=== PATIENT | male | born 1955 | race Caucasian/White ===

== ENCOUNTER 2017-02-08 18:04 | Inpatient (IN) | payer MEDICAID ==
[~2017-02-08] VITALS: Ht 152.4 cm; Wt 48.1 kg
[~2017-02-08 18:04] MED LIST: AMLO10TA80 PO; ATOR20TA65 PO; VENTOLIN INH
[2017-02-08] MEDS ORDERED: ASPIRIN 81MG TABLET PO STA (19:19)
[2017-02-08] MEDS ORDERED: IPRATROPIUM BROMIDE (0.02%) 0.5MG/2.5ML NEB HHN STA (19:19)
[2017-02-08] MEDS ORDERED: METHYLPREDNISOLONE SOD SUCC 125 MG/2 ML VIAL IV STA (19:19)
[2017-02-08] MEDS ORDERED: ALBUTEROL (0.083%) 2.5MG/3ML NEB HHN STA (19:19)
[2017-02-08] MEDS ORDERED: LEVOFLOXACIN 750MG PREMIX 150 ML IV ONE (19:30)
[2017-02-08] MEDS ORDERED: SODIUM CHLORIDE 0.9% 1000ML BAG (SEPSIS BOLUS) IV ONE (19:30)
[2017-02-08] MEDS ORDERED: NAPROXEN 500MG TABLET PO ONE (19:45)
[2017-02-08 20:00] LABS: BASOPHILS % 0.4 % (0.0-2.0); EOSINOPHILS % 2.7 % (0.0-5.0); HEMATOCRIT. 42.2 % (42.0-52.0); HEMOGLOBIN. 13.9 g/dL (14.0-18.0); LYMPHOCYTES % 24.7 % (20.0-50.0); MEAN CORPUSCULAR HEMOGLOBIN 28.1 pg (28.0-32.0); MEAN PLATELET VOLUME 8.5 fl (7.4-10.4); MONOCYTES % 6.6 % (2.0-8.0); NEUTROPHILS % 65.6 % (40.0-76.0); PLATELET 297 x1000/uL (130-400); RED BLOOD CELL COUNT 4.96 mill/uL (4.7-6.1); RED CELL DISTRIBUTION WIDTH 14.9 % (11.6-14.6)
[2017-02-08 20:05] LABS: CHLORIDE 99 mEq/L (98-107)
[2017-02-08 20:09] LABS: PARTIAL THROMBOPLASTIN TIME 27.1 sec (23.4-31.0); PROTHROMBIN TIME 10.7 sec (9.4-11.6)
[2017-02-08 20:15] LABS: CARBON DIOXIDE 28 mEq/L (21-32)
[2017-02-08 20:19] LABS: TROPONIN I < 0.02 ng/mL (0.00-0.04)
[2017-02-08 21:36] LABS: CLARITY URINE CLEAR (CLEAR); COLOR URINE YELLOW (YELLOW); GLUCOSE URINE NEGATIVE (NEGATIVE); KETONES URINE NEGATIVE (NEGATIVE); LEUKOCYTE ESTERASE URINE NEGATIVE (NEGATIVE); NITRITE URINE NEGATIVE (NEGATIVE); OCCULT BLOOD URINE NEGATIVE (NEGATIVE); PH URINE 6.5 (4.5-8.0); PROTEIN URINE NEGATIVE (NEGATIVE); UROBILINOGEN URINE 0.2 E.U./dL (0.2-1.0)
[2017-02-08] MEDS ORDERED: CLONIDINE 0.1MG TABLET PO PRN (22:45)
[2017-02-08] MEDS ORDERED: MAGNESIUM/ALUMINUM HYDROXIDE/SIMETHICONE 30ML UDC PO PRN (22:45)
[2017-02-08] MEDS ORDERED: DOCUSATE SODIUM 100MG CAPSULE PO PRN (22:45)
[2017-02-08] MEDS ORDERED: ONDANSETRON HCL 4MG/2ML VIAL IV PRN (22:45)
[2017-02-08] MEDS ORDERED: IPRATROPIUM/ALBUTEROL 0.5-3(2.5)MG/3ML NEB INH PRN (22:45)
[2017-02-08] MEDS ORDERED: ACETAMINOPHEN 325MG TABLET PO PRN (22:45)
[2017-02-09] VITALS (7 sets, daily range): BP systolic 115–134; BP diastolic 55–64
[2017-02-09] MEDS ORDERED: DEXTROSE 50% WATER 50ML SYRINGE IV PRN (02:15)
[2017-02-09 05:21] LABS: HEMOGLOBIN. 12.4 g/dL (14.0-18.0); MEAN CORPUSCULAR HEMOGLOBIN 28.3 pg (28.0-32.0); MEAN CORPUSCULAR VOLUME 84.3 fL (80.0-94.0); MEAN PLATELET VOLUME 8.6 fl (7.4-10.4); PLATELET 257 x1000/uL (130-400); RED BLOOD CELL COUNT 4.39 mill/uL (4.7-6.1); RED CELL DISTRIBUTION WIDTH 15.3 % (11.6-14.6)
[2017-02-09] MEDS: METHYLPREDNISOLONE SOD SUCC 40 MG/ML VIAL IV SCH ×3 (05:49→22:24)
[2017-02-09 06:28] LABS: PLATELET ESTIMATE NORMAL
[2017-02-09 06:42] LABS: CARBON DIOXIDE 24 mEq/L (21-32); CHLORIDE 105 mEq/L (98-107)
[2017-02-09 06:52] LABS: CREATINE KINASE 75 IU/L (39-308); CREATINE KINASE MB FRACTION 1.9 ng/mL (0.5-3.6); HDL CHOLESTEROL 48 mg/dL (40-59); LDL CHOLESTEROL 81 mg/dL (5-100); TROPONIN I < 0.02 ng/mL (0.00-0.04)
[2017-02-09] MEDS: BLOOD SUGAR DIAGNOSTIC STRIP TEST SCH ×4 (07:00→21:00)
[2017-02-09] MEDS: INSULIN LISPRO 100 UNITS/ML SUBCUT SCH ×4 (07:00→22:11)
[2017-02-09 09:15] LABS: *AMPHETAMINES SCREEN URINE NEGATIVE (NEGATIVE); *BARBITURATES SCREEN URINE NEGATIVE (NEGATIVE); *BENZODIAZEPINES SCREEN URINE NEGATIVE (NEGATIVE); *COCAINE SCREEN URINE NEGATIVE (NEGATIVE); CANNABINOID URINE SCREEN NEGATIVE (NEGATIVE); METHADONE URINE SCREEN NEGATIVE (NEGATIVE); OPIATES URINE SCREEN PRESUMTIVE POSITIVE (NEGATIVE); PHENCYCLIDINE URINE SCREEN NEGATIVE (NEGATIVE)
[2017-02-09] MEDS: AZITHROMYCIN 500 MG TABLET PO SCH (10:04)
[2017-02-09] MEDS: ENOXAPARIN 40MG/0.4ML SYR SUBCUT SCH (10:05)
[2017-02-09] MEDS ORDERED: IPRATROPIUM/ALBUTEROL 0.5-3(2.5)MG/3ML NEB HHN PRN (11:15)
[2017-02-09] MEDS: BUDESONIDE 0.5MG/2ML NEB HHN SCH (12:30)
[2017-02-09] MEDS: IPRATROPIUM/ALBUTEROL 0.5-3(2.5)MG/3ML NEB HHN SCH ×3 (12:30→20:31)
[2017-02-09 17:17] LABS: CREATINE KINASE 75 IU/L (39-308); CREATINE KINASE MB FRACTION 1.7 ng/mL (0.5-3.6); TROPONIN I < 0.02 ng/mL (0.00-0.04)
[2017-02-10] VITALS: BP 128/62
[2017-02-10] MEDS: BUDESONIDE 0.5MG/2ML NEB HHN SCH ×2 (00:22→08:06)
[2017-02-10] MEDS: IPRATROPIUM/ALBUTEROL 0.5-3(2.5)MG/3ML NEB HHN SCH ×4 (00:22→11:07)
[2017-02-10 04:00] VITALS: BP 131/63
[2017-02-10] MEDS: METHYLPREDNISOLONE SOD SUCC 40 MG/ML VIAL IV SCH (05:10)
[2017-02-10] MEDS: BLOOD SUGAR DIAGNOSTIC STRIP TEST SCH ×2 (06:18→12:18)
[2017-02-10] MEDS: INSULIN LISPRO 100 UNITS/ML SUBCUT SCH ×2 (06:19→12:18)
[2017-02-10 06:53] LABS: BASOPHILS % 0.4 % (0.0-2.0); HEMOGLOBIN. 13.3 g/dL (14.0-18.0); LYMPHOCYTES % 7.6 % (20.0-50.0); MEAN CORPUSCULAR HEMOGLOBIN 27.7 pg (28.0-32.0); MEAN CORPUSCULAR VOLUME 85.4 fL (80.0-94.0); MEAN PLATELET VOLUME 9.4 fl (7.4-10.4); MONOCYTES % 2.9 % (2.0-8.0); NEUTROPHILS % 89.1 % (40.0-76.0); PLATELET 293 x1000/uL (130-400); RED BLOOD CELL COUNT 4.81 mill/uL (4.7-6.1); RED CELL DISTRIBUTION WIDTH 15.3 % (11.6-14.6)
[2017-02-10 07:58] LABS: CARBON DIOXIDE 28 mEq/L (21-32); CHLORIDE 103 mEq/L (98-107)
[2017-02-10] MEDS: ENOXAPARIN 40MG/0.4ML SYR SUBCUT SCH (08:33)
[2017-02-10] MEDS: AZITHROMYCIN 500 MG TABLET PO SCH (08:33)
[2017-02-10 12:03] VITALS: BP 124/75
[2017-02-11] MEDS ORDERED: PREDNISONE 20MG TABLET PO SCH (09:00)
== END 2017-02-10 13:30 | disposition home or self-care (01) | DRG 140 ==
LOC: ER 18:04 → 5WST 21:19 → EDBEDREQTM 21:33 → EDBEDREQ 21:33 → ENRESERV 21:55
PROVIDERS: ADMIT Internal Medicine; ATTEND Internal Medicine
DX: J44.1 Chronic obstructive pulmonary disease with (acute) exacerbation (principal); J96.00 Acute respiratory failure, unspecified whether with hypoxia or hypercapnia; R65.10 Systemic inflammatory response syndrome (SIRS) of non-infectious origin without acute organ dysfunction; I10 Essential (primary) hypertension; E11.9 Type 2 diabetes mellitus without complications; D72.829 Elevated white blood cell count, unspecified; E78.5 Hyperlipidemia, unspecified; T38.0X5A Adverse effect of glucocorticoids and synthetic analogues, initial encounter; E78.00 Pure hypercholesterolemia, unspecified; F17.200 Nicotine dependence, unspecified, uncomplicated; Z71.6 Tobacco abuse counseling; Z79.899 Other long term (current) drug therapy; Y92.89 Other specified places as the place of occurrence of the external cause
CPT/HCPCS: 36415; 71010; 80048; 80053; 80061; 80305; 81003; 82550; 82553; 82962; 83605; 83735; 83880; 84443; 84484; 85025; 85610; 85730; 87040; 87070; 87086; 87804; 93005; 93970; 94640; 94664; 96365; 96366; 96375; 99285; J1650; J1815; J1956; J2920; J2930; J7030; J7050; J7611; J7620; J7626

== ENCOUNTER 2017-12-11 11:57 | Emergency (ER) | payer MEDICAID ==
[~2017-12-11] VITALS: Ht 162.6 cm; Wt 54.0 kg
[2017-12-11 15:13] VITALS: BP 128/72
== END 2017-12-11 15:25 | disposition home or self-care (01) ==
LOC: ER 12:34
DX: H66.91 Otitis media, unspecified, right ear (principal); J45.909 Unspecified asthma, uncomplicated; E11.9 Type 2 diabetes mellitus without complications; E78.00 Pure hypercholesterolemia, unspecified; I10 Essential (primary) hypertension; F17.200 Nicotine dependence, unspecified, uncomplicated
CPT/HCPCS: 82962; 99283

== ENCOUNTER 2018-03-19 10:15 | Inpatient (IN) | payer MEDICAID ==
[~2018-03-19] VITALS: Ht 162.6 cm; Wt 49.9 kg
[2018-03-19] MEDS ORDERED: ALBUTEROL (0.083%) 2.5MG/3ML NEB HHN STA (10:37)
[2018-03-19] MEDS ORDERED: IPRATROPIUM BROMIDE (0.02%) 0.5MG/2.5ML NEB HHN STA (10:37)
[2018-03-19] MEDS ORDERED: METHYLPREDNISOLONE SOD SUCC 125 MG/2 ML VIAL IV STA (10:37)
[2018-03-19] MEDS ORDERED: ACETAMINOPHEN 325MG TABLET PO ONE (10:45)
[2018-03-19] MEDS ORDERED: SODIUM CHLORIDE 0.9% 1,000 ML IV ONE (10:52)
[2018-03-19 11:15] LABS: BASOPHILS % 0.3 % (0.0-2.0); EOSINOPHILS % 0.6 % (0.0-5.0); HEMATOCRIT. 46.5 % (42.0-52.0); HEMOGLOBIN. 15.2 g/dL (14.0-18.0); LYMPHOCYTES % 18.8 % (20.0-50.0); MEAN CORPUSCULAR HEMOGLOBIN 28.6 pg (28.0-32.0); MEAN CORPUSCULAR VOLUME 87.1 fL (80.0-94.0); MEAN PLATELET VOLUME 9.3 fl (7.4-10.4); MONOCYTES % 8.2 % (2.0-8.0); NEUTROPHILS % 72.1 % (40.0-76.0); PLATELET 248 x1000/uL (130-400); RED BLOOD CELL COUNT 5.34 mill/uL (4.7-6.1); RED CELL DISTRIBUTION WIDTH 15.5 % (11.6-14.6)
[2018-03-19 11:26] LABS: CHLORIDE 96 mEq/L (98-107)
[2018-03-19] MEDS ORDERED: LEVOFLOXACIN 750MG PREMIX 150 ML IV ONE ×2 (11:45→12:30)
[2018-03-19] MEDS ORDERED: SODIUM CHLORIDE 0.9% 1000ML BAG (SEPSIS BOLUS) IV ONE (11:45)
[2018-03-19] MEDS ORDERED: ALBUTEROL (0.083%) 2.5MG/3ML NEB HHN ONE (12:23)
[2018-03-19] MEDS ORDERED: IPRATROPIUM/ALBUTEROL 0.5-3(2.5)MG/3ML NEB HHN PRN (14:00)
[2018-03-19] MEDS ORDERED: ONDANSETRON HCL 4MG/2ML INJ IV PRN (14:00)
[2018-03-19] MEDS ORDERED: CLONIDINE 0.1MG TABLET PO PRN (14:00)
[2018-03-19 15:08] LABS: CREATINE KINASE MB FRACTION 1.3 ng/mL (0.5-3.6)
[2018-03-19] MEDS: NICOTINE 21MG PATCH TD SCH (15:45)
[2018-03-19] MEDS: IPRATROPIUM/ALBUTEROL 0.5-3(2.5)MG/3ML NEB HHN SCH ×2 (16:00→19:53)
[2018-03-19 16:40] LABS: CLARITY URINE CLEAR (CLEAR); COLOR URINE YELLOW (YELLOW); KETONES URINE NEGATIVE (NEGATIVE); LEUKOCYTE ESTERASE URINE NEGATIVE (NEGATIVE); NITRITE URINE NEGATIVE (NEGATIVE); OCCULT BLOOD URINE NEGATIVE (NEGATIVE); PROTEIN URINE NEGATIVE (NEGATIVE); SPECIFIC GRAVITY URINE 1.019 (1.005-1.030); UROBILINOGEN URINE 0.2 E.U./dL (0.2-1.0)
[2018-03-19] MEDS ORDERED: ENOXAPARIN 80MG/0.8ML SYR SUBCUT ONE (17:15)
[2018-03-19] MEDS ORDERED: IOHEXOL-350 100 ML BOTTLE ONE (19:09)
[2018-03-19] MEDS ORDERED: MONTELUKAST SODIUM 10MG TABLET PO NR (21:45)
[2018-03-19] MEDS ORDERED: GUAIFENESIN 600MG ER TABLET PO NR (21:45)
[2018-03-19] MEDS: METHYLPREDNISOLONE SOD SUCC 40 MG/ML VIAL IV SCH (22:00)
[2018-03-19] MEDS: ACETAMINOPHEN 325MG TABLET PO PRN (22:47)
[2018-03-20] VITALS: BP 122/58
[2018-03-20 04:00] VITALS: BP 131/63
[2018-03-20] MEDS ORDERED: ENOXAPARIN 80MG/0.8ML SYR SUBCUT SCH (05:00)
[2018-03-20] MEDS: IPRATROPIUM/ALBUTEROL 0.5-3(2.5)MG/3ML NEB HHN SCH ×5 (05:01→21:37)
[2018-03-20] MEDS: METHYLPREDNISOLONE SOD SUCC 40 MG/ML VIAL IV SCH ×3 (07:08→21:53)
[2018-03-20 07:46] LABS: BASOPHILS % 0.2 % (0.0-2.0); HEMOGLOBIN. 12.6 g/dL (14.0-18.0); LYMPHOCYTES % 8.3 % (20.0-50.0); MEAN CORPUSCULAR HEMOGLOBIN 27.9 pg (28.0-32.0); MEAN CORPUSCULAR VOLUME 86.4 fL (80.0-94.0); MEAN PLATELET VOLUME 10.5 fl (7.4-10.4); MONOCYTES % 3.9 % (2.0-8.0); NEUTROPHILS % 87.6 % (40.0-76.0); PLATELET 202 x1000/uL (130-400); RED BLOOD CELL COUNT 4.51 mill/uL (4.7-6.1); RED CELL DISTRIBUTION WIDTH 15.6 % (11.6-14.6)
[2018-03-20 08:00] VITALS: BP 132/63
[2018-03-20 08:16] LABS: CHLORIDE 103 mEq/L (98-107)
[2018-03-20] MEDS: GUAIFENESIN 600MG ER TABLET PO SCH ×2 (08:51→21:54)
[2018-03-20 12:00] VITALS: BP 124/55
[2018-03-20] MEDS ORDERED: DEXTROSE 50% WATER 50ML SYRINGE IV PRN (12:45)
[2018-03-20] MEDS: INSULIN LISPRO 100 UNITS/ML SUBCUT SCH ×3 (12:50→21:56)
[2018-03-20] MEDS ORDERED: LEVOFLOXACIN 500MG PREMIX 100 ML IV SCH (13:00)
[2018-03-20] MEDS: NICOTINE 21MG PATCH TD SCH (13:29)
[2018-03-20 16:33] VITALS: BP 120/59
[2018-03-20] MEDS: BLOOD SUGAR DIAGNOSTIC STRIP TEST SCH ×2 (17:20→21:53)
[2018-03-20] MEDS: MONTELUKAST SODIUM 10MG TABLET PO SCH (18:49)
[2018-03-20 20:21] VITALS: BP 134/68
[2018-03-20 20:45] LABS: INR 1.1; PROTHROMBIN TIME 10.7 sec (9.1-11.1)
[2018-03-20] MEDS ORDERED: WARFARIN SODIUM 5MG TABLET PO SCH (21:00)
[2018-03-20] MEDS: ACETAMINOPHEN 325MG TABLET PO PRN (21:53)
[2018-03-20] MEDS: ENOXAPARIN 60MG/0.6ML SYR SUBCUT SCH (21:54)
[2018-03-21] MEDS: IPRATROPIUM/ALBUTEROL 0.5-3(2.5)MG/3ML NEB HHN SCH ×5 (00:20→20:25)
[2018-03-21 00:22] VITALS: BP 128/67
[2018-03-21 04:00] VITALS: BP 128/67
[2018-03-21] MEDS: BLOOD SUGAR DIAGNOSTIC STRIP TEST SCH ×4 (06:29→20:45)
[2018-03-21] MEDS: METHYLPREDNISOLONE SOD SUCC 40 MG/ML VIAL IV SCH ×3 (06:29→22:20)
[2018-03-21 08:17] VITALS: BP 146/72
[2018-03-21] MEDS: NICOTINE 21MG PATCH TD SCH (08:23)
[2018-03-21] MEDS: ENOXAPARIN 60MG/0.6ML SYR SUBCUT SCH ×2 (08:23→20:45)
[2018-03-21] MEDS: GUAIFENESIN 600MG ER TABLET PO SCH ×2 (08:23→20:45)
[2018-03-21] MEDS: INSULIN LISPRO 100 UNITS/ML SUBCUT SCH ×4 (08:28→20:45)
[2018-03-21 10:28] LABS: INR 1.1; PROTHROMBIN TIME 10.7 sec (9.1-11.1)
[2018-03-21] MEDS: LEVOFLOXACIN 500MG PREMIX 100 ML IV SCH (11:00)
[2018-03-21 11:27] LABS: HEMATOCRIT. 42.1 % (42.0-52.0); HEMOGLOBIN. 13.8 g/dL (14.0-18.0); MEAN CORPUSCULAR HEMOGLOBIN 28.6 pg (28.0-32.0); MEAN CORPUSCULAR VOLUME 87.3 fL (80.0-94.0); MEAN PLATELET VOLUME 10.8 fl (7.4-10.4); PLATELET 220 x1000/uL (130-400); RED BLOOD CELL COUNT 4.82 mill/uL (4.7-6.1); RED CELL DISTRIBUTION WIDTH 15.4 % (11.6-14.6)
[2018-03-21 12:07] VITALS: BP 152/73
[2018-03-21 12:31] LABS: CHLORIDE 103 mEq/L (98-107)
[2018-03-21 16:03] VITALS: BP 148/71
[2018-03-21 17:00] LABS: PLATELET ESTIMATE NORMAL
[2018-03-21] MEDS ORDERED: WARFARIN SODIUM 5MG TABLET PO SCH (18:00)
[2018-03-21] MEDS: MONTELUKAST SODIUM 10MG TABLET PO SCH (18:15)
[2018-03-21 20:00] VITALS: BP 162/84
[2018-03-21] MEDS: ATORVASTATIN CALCIUM 10MG TABLET PO SCH (20:45)
[2018-03-21] MEDS: ACETAMINOPHEN 325MG TABLET PO PRN (20:48)
[2018-03-22] VITALS: BP 144/68
[2018-03-22] MEDS: IPRATROPIUM/ALBUTEROL 0.5-3(2.5)MG/3ML NEB HHN SCH ×6 (00:41→21:32)
[2018-03-22 04:00] VITALS: BP 161/78
[2018-03-22] MEDS: ACETAMINOPHEN 325MG TABLET PO PRN ×2 (04:58→23:28)
[2018-03-22] MEDS: METHYLPREDNISOLONE SOD SUCC 40 MG/ML VIAL IV SCH ×3 (05:01→22:28)
[2018-03-22] MEDS: BLOOD SUGAR DIAGNOSTIC STRIP TEST SCH ×4 (06:23→20:33)
[2018-03-22 07:33] LABS: INR 1.6; PROTHROMBIN TIME 15.6 sec (9.1-11.1)
[2018-03-22 07:43] LABS: CHLORIDE 101 mEq/L (98-107)
[2018-03-22 07:44] LABS: BASOPHILS % 0.4 % (0.0-2.0); HEMATOCRIT. 41.1 % (42.0-52.0); HEMOGLOBIN. 13.5 g/dL (14.0-18.0); LYMPHOCYTES % 8.1 % (20.0-50.0); MEAN CORPUSCULAR HEMOGLOBIN 28.2 pg (28.0-32.0); MEAN CORPUSCULAR VOLUME 85.9 fL (80.0-94.0); MEAN PLATELET VOLUME 10.4 fl (7.4-10.4); NEUTROPHILS % 88.5 % (40.0-76.0); PLATELET 217 x1000/uL (130-400); RED BLOOD CELL COUNT 4.78 mill/uL (4.7-6.1); RED CELL DISTRIBUTION WIDTH 14.9 % (11.6-14.6)
[2018-03-22] MEDS: INSULIN LISPRO 100 UNITS/ML SUBCUT SCH ×4 (07:50→20:33)
[2018-03-22 08:20] VITALS: BP 159/77
[2018-03-22] MEDS: NICOTINE 21MG PATCH TD SCH (09:19)
[2018-03-22] MEDS: ENOXAPARIN 60MG/0.6ML SYR SUBCUT SCH ×2 (09:19→20:33)
[2018-03-22] MEDS: GUAIFENESIN 600MG ER TABLET PO SCH ×2 (09:20→20:32)
[2018-03-22] MEDS: LEVOFLOXACIN 500MG PREMIX 100 ML IV SCH (11:00)
[2018-03-22 12:30] VITALS: BP 152/90
[2018-03-22 16:00] VITALS: BP 147/74
[2018-03-22] MEDS: MONTELUKAST SODIUM 10MG TABLET PO SCH (16:40)
[2018-03-22] MEDS ORDERED: WARFARIN SODIUM 2.5MG TABLET PO NR (18:00)
[2018-03-22] MEDS ORDERED: WARFARIN SODIUM 3MG TABLET PO NR (18:00)
[2018-03-22 20:00] VITALS: BP 152/77
[2018-03-22] MEDS: ATORVASTATIN CALCIUM 10MG TABLET PO SCH (20:32)
[2018-03-23] VITALS: BP 150/76
[2018-03-23] MEDS: IPRATROPIUM/ALBUTEROL 0.5-3(2.5)MG/3ML NEB HHN SCH ×3 (00:55→07:49)
[2018-03-23 04:00] VITALS: BP 144/82
[2018-03-23] MEDS: METHYLPREDNISOLONE SOD SUCC 40 MG/ML VIAL IV SCH (06:49)
[2018-03-23] MEDS: BLOOD SUGAR DIAGNOSTIC STRIP TEST SCH ×2 (06:49→11:50)
[2018-03-23 07:50] LABS: PROTHROMBIN TIME 19.4 sec (9.1-11.1)
[2018-03-23 08:28] VITALS: BP 145/72
[2018-03-23] MEDS: GUAIFENESIN 600MG ER TABLET PO SCH (09:24)
[2018-03-23] MEDS: NICOTINE 21MG PATCH TD SCH (09:24)
[2018-03-23] MEDS: ENOXAPARIN 60MG/0.6ML SYR SUBCUT SCH (09:25)
[2018-03-23] MEDS: INSULIN LISPRO 100 UNITS/ML SUBCUT SCH ×2 (09:41→11:45)
[2018-03-23 11:17] VITALS: BP 149/53
[2018-03-23] MEDS: LEVOFLOXACIN 500MG PREMIX 100 ML IV SCH (12:17)
[2018-03-23 15:01] VITALS: BP 125/74
[2018-03-23 15:51] VITALS: BP 141/75
[2018-03-23] MEDS ORDERED: PREDNISONE 20MG TABLET PO SCH (17:00)
[2018-03-23] MEDS ORDERED: WARFARIN SODIUM 4MG TABLET PO NR (18:00)
== END 2018-03-23 15:40 | disposition home or self-care (01) | DRG 720 ==
LOC: ER 10:15 → 6WST 15:04 → ENRESERV 21:43
PROVIDERS: ADMIT Internal Medicine; ATTEND Internal Medicine
DX: A41.9 Sepsis, unspecified organism (principal); J96.20 Acute and chronic respiratory failure, unspecified whether with hypoxia or hypercapnia; I26.99 Other pulmonary embolism without acute cor pulmonale; J44.1 Chronic obstructive pulmonary disease with (acute) exacerbation; E87.1 Hypo-osmolality and hyponatremia; J45.901 Unspecified asthma with (acute) exacerbation; E87.8 Other disorders of electrolyte and fluid balance, not elsewhere classified; I10 Essential (primary) hypertension; F17.210 Nicotine dependence, cigarettes, uncomplicated; E78.5 Hyperlipidemia, unspecified; E11.9 Type 2 diabetes mellitus without complications; E78.00 Pure hypercholesterolemia, unspecified; G40.909 Epilepsy, unspecified, not intractable, without status epilepticus; Z99.81 Dependence on supplemental oxygen; Z71.6 Tobacco abuse counseling; Z88.1 Allergy status to other antibiotic agents; Z79.899 Other long term (current) drug therapy
CPT/HCPCS: 36415; 71045; 71275; 80048; 82550; 82553; 82962; 83605; 83880; 84145; 84484; 85379; 87804; 93005; 94640; 96365; 96375; 97162; 97166; 99291; J1650; J1815; J1956; J2920; J2930; J7030; J7040; J7611; J7620; Q9967

== ENCOUNTER 2018-04-02 14:52 | Inpatient (IN) | payer MEDICAID ==
[~2018-04-02] VITALS: Ht 162.6 cm; Wt 46.3 kg
[2018-04-02] MEDS ORDERED: FENTANYL CITRATE/PF 50MCG/ML 2ML VIAL IV ONE (16:30)
[2018-04-02 17:27] LABS: BASOPHILS % 0.4 % (0.0-2.0); EOSINOPHILS % 0.2 % (0.0-5.0); HEMATOCRIT. 41.8 % (42.0-52.0); HEMOGLOBIN. 13.9 g/dL (14.0-18.0); LYMPHOCYTES % 7.5 % (20.0-50.0); MEAN CORPUSCULAR HEMOGLOBIN 28.1 pg (28.0-32.0); MEAN CORPUSCULAR VOLUME 84.3 fL (80.0-94.0); MEAN PLATELET VOLUME 9.1 fl (7.4-10.4); MONOCYTES % 5.6 % (2.0-8.0); NEUTROPHILS % 86.3 % (40.0-76.0); PLATELET 239 x1000/uL (130-400); RED BLOOD CELL COUNT 4.96 mill/uL (4.7-6.1); RED CELL DISTRIBUTION WIDTH 15.1 % (11.6-14.6)
[2018-04-02 17:31] LABS: CHLORIDE 98 mEq/L (98-107)
[2018-04-02 17:38] LABS: ETHANOL BLOOD < 10 mg/dL
[2018-04-02 17:44] LABS: PARTIAL THROMBOPLASTIN TIME 67.9 sec (23.4-31.0); PROTHROMBIN TIME 80.1 sec (9.1-11.1)
[2018-04-02] MEDS ORDERED: ONDANSETRON HCL 4MG/2ML INJ IV ONE (17:45)
[2018-04-02 17:47] LABS: INR 8.3
[2018-04-02 18:34] LABS: CLARITY URINE CLEAR (CLEAR); COLOR URINE YELLOW (YELLOW); KETONES URINE NEGATIVE (NEGATIVE); LEUKOCYTE ESTERASE URINE NEGATIVE (NEGATIVE); NITRITE URINE NEGATIVE (NEGATIVE); OCCULT BLOOD URINE NEGATIVE (NEGATIVE); PH URINE >=9.0 (4.5-8.0); PROTEIN URINE TRACE (NEGATIVE); SPECIFIC GRAVITY URINE 1.026 (1.005-1.030)
[2018-04-02 18:43] LABS: *AMPHETAMINES SCREEN URINE NEGATIVE (NEGATIVE); *BARBITURATES SCREEN URINE NEGATIVE (NEGATIVE); *BENZODIAZEPINES SCREEN URINE NEGATIVE (NEGATIVE); *COCAINE SCREEN URINE NEGATIVE (NEGATIVE); METHADONE URINE SCREEN NEGATIVE (NEGATIVE); OPIATES URINE SCREEN PRESUMTIVE POSITIVE (NEGATIVE)
[2018-04-02 18:45] LABS: CANNABINOID URINE SCREEN NEGATIVE (NEGATIVE); PHENCYCLIDINE URINE SCREEN NEGATIVE (NEGATIVE)
[2018-04-02] MEDS ORDERED: SODIUM CHLORIDE 0.9% 1000ML BAG (SEPSIS BOLUS) IV ONE (19:30)
[2018-04-02] MEDS ORDERED: LEVOFLOXACIN 500MG PREMIX 100 ML IV ONE (19:30)
[2018-04-03] VITALS (7 sets, daily range): BP systolic 111–134; BP diastolic 67–75
[2018-04-03] MEDS ORDERED: ATOR10TA69 PO (02:53)
[2018-04-03] MEDS ORDERED: WARF4TAB71 MT (02:53)
[2018-04-03] MEDS ORDERED: MONT10TA24 PO (02:53)
[2018-04-03] MEDS ORDERED: AMLO10TA80 PO (02:53)
[2018-04-03] MEDS ORDERED: HYDROCODONE/ACETAMINOPHEN 5/325MG TABLET PO PRN (03:15)
[2018-04-03] MEDS ORDERED: DEXTROSE 50% WATER 50ML SYRINGE IV PRN (03:30)
[2018-04-03] MEDS: BLOOD SUGAR DIAGNOSTIC STRIP TEST SCH ×4 (06:45→21:00)
[2018-04-03] MEDS: INSULIN LISPRO 100 UNITS/ML SUBCUT SCH ×4 (07:15→22:40)
[2018-04-03 11:43] LABS: HEMATOCRIT 38.3 % (42.0-52.0); HEMOGLOBIN 12.7 g/dL (14.0-18.0); MEAN CORPUSCULAR HEMOGLOBIN 28.3 pg (28.0-32.0); MEAN CORPUSCULAR VOLUME 85.7 fL (80.0-94.0); PLATELET 210 x1000/uL (130-400); RED BLOOD CELL COUNT 4.47 mill/uL (4.7-6.1); RED CELL DISTRIBUTION WIDTH 14.9 % (11.6-14.6)
[2018-04-03] MEDS: SODIUM CHLORIDE 0.9% 1,000 ML IV SCH (12:29)
[2018-04-03] MEDS ORDERED: LEVOFLOXACIN 500MG PREMIX 100 ML IV SCH (15:30)
[2018-04-03] MEDS ORDERED: PHYTONADIONE 10MG/ML AMP SUBCUT SCH (15:45)
[2018-04-03] MEDS: IPRATROPIUM/ALBUTEROL 0.5-3(2.5)MG/3ML NEB HHN SCH ×2 (16:33→20:20)
[2018-04-03 16:37] LABS: CHLORIDE 102 mEq/L (98-107)
[2018-04-03] MEDS ORDERED: METHYLPREDNISOLONE SOD SUCC 125 MG/2 ML VIAL IV NR (17:00)
[2018-04-03] MEDS: MONTELUKAST SODIUM 10MG TABLET PO SCH (17:55)
[2018-04-03] MEDS: AMLODIPINE 10MG TABLET PO SCH (17:55)
[2018-04-03] MEDS: NICOTINE 14MG PATCH TD SCH (22:36)
[2018-04-03] MEDS: LEVOFLOXACIN 500MG PREMIX 100 ML IV SCH (22:52)
[2018-04-04] VITALS (8 sets, daily range): BP systolic 110–127; BP diastolic 58–79
[2018-04-04] MEDS: IPRATROPIUM/ALBUTEROL 0.5-3(2.5)MG/3ML NEB HHN SCH ×6 (00:25→20:19)
[2018-04-04] MEDS: SODIUM CHLORIDE 0.9% 1,000 ML IV SCH ×2 (00:45→12:14)
[2018-04-04] MEDS: METHYLPREDNISOLONE SOD SUCC 40 MG/ML VIAL IV SCH ×3 (03:31→17:23)
[2018-04-04] MEDS: INSULIN LISPRO 100 UNITS/ML SUBCUT SCH ×4 (06:41→21:41)
[2018-04-04] MEDS: BLOOD SUGAR DIAGNOSTIC STRIP TEST SCH ×2 (06:45→21:00)
[2018-04-04 07:07] LABS: INR 1.2; PARTIAL THROMBOPLASTIN TIME 40.5 sec (23.4-31.0); PROTHROMBIN TIME 12.1 sec (9.1-11.1)
[2018-04-04] MEDS: AMLODIPINE 10MG TABLET PO SCH (09:16)
[2018-04-04] MEDS: ATORVASTATIN CALCIUM 10MG TABLET PO SCH (09:17)
[2018-04-04] MEDS: NICOTINE 14MG PATCH TD SCH (09:17)
[2018-04-04] MEDS: APIXABAN 5 MG TABLET PO SCH (17:00)
[2018-04-04] MEDS: MONTELUKAST SODIUM 10MG TABLET PO SCH (17:23)
[2018-04-04] MEDS: LEVOFLOXACIN 500MG PREMIX 100 ML IV SCH (21:29)
[2018-04-05] VITALS: BP 126/71
[2018-04-05] MEDS: IPRATROPIUM/ALBUTEROL 0.5-3(2.5)MG/3ML NEB HHN SCH ×6 (00:10→21:10)
[2018-04-05 04:00] VITALS: BP 137/66
[2018-04-05] MEDS: METHYLPREDNISOLONE SOD SUCC 40 MG/ML VIAL IV SCH ×3 (04:04→17:48)
[2018-04-05] MEDS: SODIUM CHLORIDE 0.9% 1,000 ML IV SCH ×2 (04:05→17:48)
[2018-04-05] MEDS: BLOOD SUGAR DIAGNOSTIC STRIP TEST SCH ×5 (06:21→21:06)
[2018-04-05] MEDS: INSULIN LISPRO 100 UNITS/ML SUBCUT SCH ×4 (06:35→21:16)
[2018-04-05 07:47] LABS: HEMOGLOBIN. 11.9 g/dL (14.0-18.0); MEAN CORPUSCULAR HEMOGLOBIN 28.4 pg (28.0-32.0); MEAN CORPUSCULAR VOLUME 85.8 fL (80.0-94.0); MEAN PLATELET VOLUME 9.5 fl (7.4-10.4); PLATELET 249 x1000/uL (130-400); RED BLOOD CELL COUNT 4.19 mill/uL (4.7-6.1); RED CELL DISTRIBUTION WIDTH 15.1 % (11.6-14.6)
[2018-04-05 07:52] LABS: CHLORIDE 106 mEq/L (98-107)
[2018-04-05 08:00] VITALS: BP 136/67
[2018-04-05] MEDS: AMLODIPINE 10MG TABLET PO SCH (09:39)
[2018-04-05] MEDS: ATORVASTATIN CALCIUM 10MG TABLET PO SCH (09:39)
[2018-04-05] MEDS: APIXABAN 5 MG TABLET PO SCH ×2 (09:40→17:48)
[2018-04-05] MEDS: NICOTINE 14MG PATCH TD SCH (09:40)
[2018-04-05 11:57] VITALS: BP 120/63
[2018-04-05 14:40] LABS: PLATELET ESTIMATE NORMAL
[2018-04-05 16:00] VITALS: BP 128/59
[2018-04-05] MEDS: MONTELUKAST SODIUM 10MG TABLET PO SCH (17:48)
[2018-04-05 20:00] VITALS: BP 141/71
[2018-04-05] MEDS ORDERED: ALPRAZOLAM 0.5 MG TABLET PO NR (20:00)
[2018-04-05] MEDS: LEVOFLOXACIN 500MG PREMIX 100 ML IV SCH (21:06)
[2018-04-06] VITALS (7 sets, daily range): BP systolic 123–155; BP diastolic 59–81
[2018-04-06] MEDS: IPRATROPIUM/ALBUTEROL 0.5-3(2.5)MG/3ML NEB HHN SCH ×6 (00:32→21:10)
[2018-04-06] MEDS: METHYLPREDNISOLONE SOD SUCC 40 MG/ML VIAL IV SCH ×3 (03:31→17:41)
[2018-04-06] MEDS: SODIUM CHLORIDE 0.9% 1,000 ML IV SCH ×2 (06:58→21:40)
[2018-04-06] MEDS: INSULIN LISPRO 100 UNITS/ML SUBCUT SCH ×4 (06:59→21:37)
[2018-04-06] MEDS: BLOOD SUGAR DIAGNOSTIC STRIP TEST SCH ×4 (07:01→21:15)
[2018-04-06] MEDS: ATORVASTATIN CALCIUM 10MG TABLET PO SCH (08:44)
[2018-04-06] MEDS: APIXABAN 5 MG TABLET PO SCH ×2 (08:44→17:41)
[2018-04-06] MEDS: AMLODIPINE 10MG TABLET PO SCH (08:44)
[2018-04-06] MEDS: NICOTINE 14MG PATCH TD SCH (08:45)
[2018-04-06] MEDS: MONTELUKAST SODIUM 10MG TABLET PO SCH (17:41)
[2018-04-06] MEDS: LEVOFLOXACIN 500MG PREMIX 100 ML IV SCH (21:00)
== END 2018-04-06 23:45 | disposition home or self-care (01) | DRG 720 ==
LOC: ER 15:00 → 5WST 19:36 → EDBEDREQ 19:42 → EDBEDREQTM 19:42 → EDBEDREQSVC 19:42 → ENRESERV 21:33
PROVIDERS: ADMIT Internal Medicine; ATTEND Internal Medicine
DX: A41.9 Sepsis, unspecified organism (principal); J96.01 Acute respiratory failure with hypoxia; J18.1 Lobar pneumonia, unspecified organism; E11.9 Type 2 diabetes mellitus without complications; E78.00 Pure hypercholesterolemia, unspecified; I10 Essential (primary) hypertension; J20.9 Acute bronchitis, unspecified; J44.0 Chronic obstructive pulmonary disease with (acute) lower respiratory infection; Y95 Nosocomial condition; J44.1 Chronic obstructive pulmonary disease with (acute) exacerbation; E78.5 Hyperlipidemia, unspecified; T45.515A Adverse effect of anticoagulants, initial encounter; Y92.89 Other specified places as the place of occurrence of the external cause; Z86.718 Personal history of other venous thrombosis and embolism; Z86.711 Personal history of pulmonary embolism; Z88.1 Allergy status to other antibiotic agents; E44.1 Mild protein-calorie malnutrition
CPT/HCPCS: 36415; 71045; 74176; 80048; 80305; 82962; 83605; 83735; 83880; 84145; 84484; 85027; 93005; 94640; 96365; 96366; 96375; 99291; G0482; J1815; J1956; J2405; J2920; J2930; J3010; J3430; J7030; J7050; J7620

== ENCOUNTER 2018-04-19 15:21 | Inpatient (IN) | payer MEDICAID ==
[~2018-04-19] VITALS: Ht 162.6 cm; Wt 48.1 kg
[2018-04-19] VITALS (10 sets, daily range): BP systolic 99–146; BP diastolic 48–69
[~2018-04-19 15:21] MED LIST changes: +ATOR10TA69 PO; -ATOR20TA65 PO; +MONT10TA24 PO; -VENTOLIN INH
[2018-04-19] MEDS ORDERED: METHYLPREDNISOLONE SOD SUCC 125 MG/2 ML VIAL IV STA (15:31)
[2018-04-19] MEDS ORDERED: IPRATROPIUM BROMIDE (0.02%) 0.5MG/2.5ML NEB HHN STA (15:31)
[2018-04-19] MEDS ORDERED: ALBUTEROL (0.083%) 2.5MG/3ML NEB HHN STA (15:31)
[2018-04-19] MEDS ORDERED: MAGNESIUM 2 G PREMIX 50 ML IV STA (15:31)
[2018-04-19] MEDS ORDERED: IPRATROPIUM/ALBUTEROL 0.5-3(2.5)MG/3ML NEB ONE (15:54)
[2018-04-19] MEDS ORDERED: SODIUM CHLORIDE 0.9% 1,000 ML IV ONE (16:15)
[2018-04-19 17:00] LABS: BASOPHILS % 0.5 % (0.0-2.0); EOSINOPHILS % 0.7 % (0.0-5.0); HEMATOCRIT. 39.4 % (42.0-52.0); HEMOGLOBIN. 12.9 g/dL (14.0-18.0); LYMPHOCYTES % 18.4 % (20.0-50.0); MEAN CORPUSCULAR VOLUME 85.5 fL (80.0-94.0); MEAN PLATELET VOLUME 8.9 fl (7.4-10.4); MONOCYTES % 12.6 % (2.0-8.0); NEUTROPHILS % 67.8 % (40.0-76.0); PLATELET 277 x1000/uL (130-400)
[2018-04-19] MEDS ORDERED: DILTIAZEM HCL 5MG/ML 5ML VIAL IV ONE (17:00)
[2018-04-19 17:03] LABS: CHLORIDE 99 mEq/L (98-107)
[2018-04-19 17:04] LABS: INR 1.1; PARTIAL THROMBOPLASTIN TIME 36.5 sec (23.4-31.0); PROTHROMBIN TIME 11.2 sec (9.1-11.1)
[2018-04-19 17:07] LABS: ETHANOL BLOOD < 10 mg/dL
[2018-04-19 17:27] LABS: CLARITY URINE CLEAR (CLEAR); COLOR URINE YELLOW (YELLOW); KETONES URINE TRACE (NEGATIVE); LEUKOCYTE ESTERASE URINE NEGATIVE (NEGATIVE); NITRITE URINE NEGATIVE (NEGATIVE); OCCULT BLOOD URINE NEGATIVE (NEGATIVE); PROTEIN URINE NEGATIVE (NEGATIVE); SPECIFIC GRAVITY URINE 1.016 (1.005-1.030)
[2018-04-19] MEDS ORDERED: VANCOMYCIN 1 G PREMIX 200 ML IV SCH (17:30)
[2018-04-19] MEDS ORDERED: ACETAMINOPHEN 325MG TABLET PO ONE (17:30)
[2018-04-19] MEDS ORDERED: LEVOFLOXACIN 500MG PREMIX 100 ML IV ONE (17:30)
[2018-04-19] MEDS ORDERED: PIPERACILLIN/TAZ 3.375G PREMIX 50 ML IV SCH (17:30)
[2018-04-19] MEDS ORDERED: SODIUM CHLORIDE 0.9% 1000ML BAG (SEPSIS BOLUS) IV ONE (17:30)
[2018-04-19 17:40] LABS: *AMPHETAMINES SCREEN URINE NEGATIVE (NEGATIVE); *BARBITURATES SCREEN URINE NEGATIVE (NEGATIVE); *COCAINE SCREEN URINE NEGATIVE (NEGATIVE)
[2018-04-19 17:41] LABS: *BENZODIAZEPINES SCREEN URINE NEGATIVE (NEGATIVE); METHADONE URINE SCREEN NEGATIVE (NEGATIVE); OPIATES URINE SCREEN NEGATIVE (NEGATIVE); PHENCYCLIDINE URINE SCREEN NEGATIVE (NEGATIVE)
[2018-04-19 17:42] LABS: CANNABINOID URINE SCREEN NEGATIVE (NEGATIVE)
[2018-04-19] MEDS ORDERED: AZTREONAM 2GM in DEXTROSE 5% WATER 100ML IV SCH (22:00)
[2018-04-20] VITALS (27 sets, daily range): BP systolic 81–153; BP diastolic 44–76
[2018-04-20] MEDS: IPRATROPIUM BROMIDE (0.02%) 0.5MG/2.5ML NEB HHN SCH ×4 (00:37→20:41)
[2018-04-20] MEDS: BUDESONIDE 0.5MG/2ML NEB HHN SCH ×3 (00:37→20:42)
[2018-04-20] MEDS: AZTREONAM 2GM in DEXTROSE 5% WATER 100ML IV SCH ×3 (02:07→19:24)
[2018-04-20] MEDS: VANCOMYCIN 750 MG PREMIX 150 ML IV SCH ×3 (03:35→19:24)
[2018-04-20] MEDS ORDERED: IPRATROPIUM/ALBUTEROL 0.5-3(2.5)MG/3ML NEB INH PRN (09:00)
[2018-04-20] MEDS ORDERED: DOCUSATE SODIUM 100MG CAPSULE PO PRN (09:00)
[2018-04-20] MEDS ORDERED: ONDANSETRON HCL 4MG/2ML INJ IV PRN (09:00)
[2018-04-20] MEDS ORDERED: ACETAMINOPHEN 325MG TABLET PO PRN (09:00)
[2018-04-20] MEDS: APIXABAN 5 MG TABLET PO SCH ×2 (09:30→19:23)
[2018-04-20] MEDS: MONTELUKAST SODIUM 10MG TABLET PO SCH (09:31)
[2018-04-20] MEDS: NICOTINE 7MG PATCH TD SCH (20:29)
[2018-04-20] MEDS: ATORVASTATIN CALCIUM 10MG TABLET PO SCH (20:29)
[2018-04-20] MEDS: HYDROCODONE/ACETAMINOPHEN 5/325MG TABLET PO PRN (23:06)
[2018-04-21] MEDS: IPRATROPIUM BROMIDE (0.02%) 0.5MG/2.5ML NEB HHN SCH ×4 (00:40→20:29)
[2018-04-21] MEDS: AZTREONAM 2GM in DEXTROSE 5% WATER 100ML IV SCH ×3 (02:02→17:15)
[2018-04-21] MEDS: VANCOMYCIN 750 MG PREMIX 150 ML IV SCH ×2 (03:06→09:03)
[2018-04-21 04:00] VITALS: BP 129/63
[2018-04-21] MEDS: HYDROCODONE/ACETAMINOPHEN 5/325MG TABLET PO PRN ×2 (06:37→20:33)
[2018-04-21 07:54] LABS: BASOPHILS % 0.1 % (0.0-2.0); EOSINOPHILS % 0.4 % (0.0-5.0); HEMATOCRIT. 34.7 % (42.0-52.0); HEMOGLOBIN. 11.3 g/dL (14.0-18.0); LYMPHOCYTES % 15.6 % (20.0-50.0); MEAN CORPUSCULAR VOLUME 85.6 fL (80.0-94.0); MEAN PLATELET VOLUME 8.3 fl (7.4-10.4); MONOCYTES % 6.7 % (2.0-8.0); NEUTROPHILS % 77.2 % (40.0-76.0); PLATELET 270 x1000/uL (130-400); RED BLOOD CELL COUNT 4.05 mill/uL (4.7-6.1); RED CELL DISTRIBUTION WIDTH 14.9 % (11.6-14.6)
[2018-04-21 08:00] VITALS: BP 107/74
[2018-04-21] MEDS: BUDESONIDE 0.5MG/2ML NEB HHN SCH ×2 (08:06→20:29)
[2018-04-21] MEDS: NICOTINE 7MG PATCH TD SCH (09:02)
[2018-04-21] MEDS: APIXABAN 5 MG TABLET PO SCH ×2 (09:02→16:09)
[2018-04-21 09:51] LABS: CHLORIDE 105 mEq/L (98-107)
[2018-04-21 10:00] VITALS: BP 110/70
[2018-04-21] MEDS: VANCOMYCIN 1 G PREMIX 200 ML IV SCH ×2 (15:25→21:52)
[2018-04-21] MEDS: ALPRAZOLAM 0.25 MG TABLET PO PRN (16:08)
[2018-04-21] MEDS: MONTELUKAST SODIUM 10MG TABLET PO SCH (16:09)
[2018-04-21 16:44] VITALS: BP 124/66
[2018-04-21] MEDS ORDERED: MONTELUKAST SODIUM 10MG TABLET PO SCH (17:00)
[2018-04-21 20:05] VITALS: BP 146/83
[2018-04-21] MEDS: ATORVASTATIN CALCIUM 10MG TABLET PO SCH (20:33)
[2018-04-22 00:05] VITALS: BP 117/64
[2018-04-22] MEDS: IPRATROPIUM BROMIDE (0.02%) 0.5MG/2.5ML NEB HHN SCH ×3 (01:17→14:28)
[2018-04-22] MEDS: AZTREONAM 2GM in DEXTROSE 5% WATER 100ML IV SCH ×3 (01:45→16:58)
[2018-04-22 04:00] VITALS: BP 134/85
[2018-04-22] MEDS: VANCOMYCIN 1 G PREMIX 200 ML IV SCH ×2 (05:04→15:48)
[2018-04-22 06:21] LABS: BASOPHILS % 0.6 % (0.0-2.0); EOSINOPHILS % 1.1 % (0.0-5.0); HEMATOCRIT. 37.3 % (42.0-52.0); HEMOGLOBIN. 12.3 g/dL (14.0-18.0); LYMPHOCYTES % 24.5 % (20.0-50.0); MEAN CORPUSCULAR HEMOGLOBIN 28.3 pg (28.0-32.0); MEAN CORPUSCULAR VOLUME 85.9 fL (80.0-94.0); MONOCYTES % 10.8 % (2.0-8.0); PLATELET 272 x1000/uL (130-400); RED BLOOD CELL COUNT 4.34 mill/uL (4.7-6.1); RED CELL DISTRIBUTION WIDTH 15.2 % (11.6-14.6)
[2018-04-22 08:00] VITALS: BP 119/68
[2018-04-22] MEDS: APIXABAN 5 MG TABLET PO SCH ×2 (08:13→16:57)
[2018-04-22] MEDS: NICOTINE 7MG PATCH TD SCH (08:24)
[2018-04-22] MEDS: ALPRAZOLAM 0.25 MG TABLET PO PRN (08:25)
[2018-04-22 12:00] VITALS: BP 152/71
[2018-04-22 12:22] LABS: CHLORIDE 99 mEq/L (98-107)
[2018-04-22 12:38] LABS: VANCOMYCIN TROUGH 22.8 ug/mL (5.0-10.0)
[2018-04-22 16:00] VITALS: BP 133/68
[2018-04-22] MEDS: MONTELUKAST SODIUM 10MG TABLET PO SCH (16:57)
[2018-04-22 18:19] VITALS: BP 152/72
== END 2018-04-22 18:35 | disposition home or self-care (01) | DRG 720 ==
LOC: ER 15:21 → EDBEDREQSVC 16:38 → EDBEDREQ 16:38 → EDBEDREQSVC 17:25 → ENRESERV 18:31 → CVICU 19:11 → 7WST 04-20 15:56
PROVIDERS: ADMIT Internal Medicine; ATTEND Internal Medicine
DX: A41.9 Sepsis, unspecified organism (principal); J96.00 Acute respiratory failure, unspecified whether with hypoxia or hypercapnia; J18.8 Other pneumonia, unspecified organism; E44.1 Mild protein-calorie malnutrition; D64.9 Anemia, unspecified; E11.9 Type 2 diabetes mellitus without complications; E87.1 Hypo-osmolality and hyponatremia; I48.91 Unspecified atrial fibrillation; J44.0 Chronic obstructive pulmonary disease with (acute) lower respiratory infection; J44.1 Chronic obstructive pulmonary disease with (acute) exacerbation; J20.9 Acute bronchitis, unspecified; M94.0 Chondrocostal junction syndrome [Tietze]; F41.9 Anxiety disorder, unspecified; K57.90 Diverticulosis of intestine, part unspecified, without perforation or abscess without bleeding; I10 Essential (primary) hypertension; F17.210 Nicotine dependence, cigarettes, uncomplicated; E78.5 Hyperlipidemia, unspecified; Z88.1 Allergy status to other antibiotic agents; Z86.711 Personal history of pulmonary embolism; Z87.01 Personal history of pneumonia (recurrent); Z79.899 Other long term (current) drug therapy; Z71.6 Tobacco abuse counseling
CPT/HCPCS: 36415; 71045; 80048; 80202; 80305; 82962; 83605; 83880; 84145; 84484; 86850; 86900; 87804; 93005; 93306; 93970; 94640; 96365; 96366; 96375; 99291; G0482; J1956; J2930; J3370; J3475; J3490; J7030; J7050; J7060; J7611; J7620; J7626

== ENCOUNTER 2018-06-25 12:19 | Inpatient (IN) | payer MEDICAID ==
[~2018-06-25] VITALS: Ht 154.9 cm; Wt 45.4 kg
[2018-06-25] MEDS ORDERED: METHYLPREDNISOLONE SOD SUCC 125 MG/2 ML VIAL IV STA (12:41)
[2018-06-25] MEDS ORDERED: ALBUTEROL (0.083%) 2.5MG/3ML NEB HHN STA (12:41)
[2018-06-25] MEDS ORDERED: IPRATROPIUM BROMIDE (0.02%) 0.5MG/2.5ML NEB HHN STA (12:41)
[2018-06-25] MEDS ORDERED: ASPIRIN 81MG TABLET PO ONE (12:45)
[2018-06-25 13:12] LABS: BASOPHILS % 0.5 % (0.0-2.0); EOSINOPHILS % 1.1 % (0.0-5.0); HEMATOCRIT. 38.1 % (42.0-52.0); HEMOGLOBIN. 12.5 g/dL (14.0-18.0); LYMPHOCYTES % 30.2 % (20.0-50.0); MEAN CORPUSCULAR HEMOGLOBIN 27.5 pg (28.0-32.0); MEAN CORPUSCULAR VOLUME 84.2 fL (80.0-94.0); MEAN PLATELET VOLUME 8.4 fl (7.4-10.4); MONOCYTES % 5.6 % (2.0-8.0); NEUTROPHILS % 62.6 % (40.0-76.0); PLATELET 297 x1000/uL (130-400); RED BLOOD CELL COUNT 4.52 mill/uL (4.7-6.1); RED CELL DISTRIBUTION WIDTH 14.6 % (11.6-14.6)
[2018-06-25 13:16] LABS: CHLORIDE 104 mEq/L (98-107)
[2018-06-25 13:19] LABS: INR 1.1; PARTIAL THROMBOPLASTIN TIME 30.5 sec (23.4-31.0); PROTHROMBIN TIME 11.4 sec (9.1-11.1)
[2018-06-25 20:40] VITALS: BP 132/65
[2018-06-25 21:00] VITALS: BP 132/65
[2018-06-25] MEDS ORDERED: ONDANSETRON HCL 4MG/2ML INJ IV PRN (22:15)
[2018-06-25] MEDS: METHYLPREDNISOLONE SOD SUCC 40 MG/ML VIAL IV SCH (22:40)
[2018-06-25] MEDS: ACETAMINOPHEN 325MG TABLET PO PRN (22:40)
[2018-06-26] VITALS: BP 138/60
[2018-06-26 04:00] VITALS: BP 113/66
[2018-06-26] MEDS: METHYLPREDNISOLONE SOD SUCC 40 MG/ML VIAL IV SCH ×3 (05:21→22:34)
[2018-06-26 06:59] LABS: HEMATOCRIT 37.3 % (42.0-52.0); MEAN CORPUSCULAR HEMOGLOBIN 27.8 pg (28.0-32.0); MEAN CORPUSCULAR VOLUME 86.6 fL (80.0-94.0); PLATELET 238 x1000/uL (130-400); RED BLOOD CELL COUNT 4.31 mill/uL (4.7-6.1)
[2018-06-26 07:07] LABS: CHLORIDE 103 mEq/L (98-107)
[2018-06-26 08:06] VITALS: BP 130/68
[2018-06-26] MEDS: ACETAMINOPHEN 325MG TABLET PO PRN ×2 (08:40→21:16)
[2018-06-26] MEDS ORDERED: ENOXAPARIN 40MG/0.4ML SYR SUBCUT SCH (09:00)
[2018-06-26 12:00] VITALS: BP 136/72
[2018-06-26] MEDS ORDERED: DEXTROSE 50% WATER 50ML SYRINGE IV PRN (15:30)
[2018-06-26 16:00] VITALS: BP 147/70
[2018-06-26] MEDS ORDERED: GUAIFENESIN-DM 200MG-20MG/10ML UDC PO PRN (16:00)
[2018-06-26] MEDS ORDERED: ALPRAZOLAM 0.25 MG TABLET PO PRN (16:45)
[2018-06-26] MEDS ORDERED: LEVOFLOXACIN 500MG PREMIX 100 ML IV SCH (18:00)
[2018-06-26] MEDS: AMLODIPINE 10MG TABLET PO SCH (18:02)
[2018-06-26] MEDS: APIXABAN 5 MG TABLET PO SCH (18:02)
[2018-06-26] MEDS: BLOOD SUGAR DIAGNOSTIC STRIP TEST SCH ×2 (18:04→21:00)
[2018-06-26] MEDS: INSULIN LISPRO 100 UNITS/ML SUBCUT SCH ×2 (18:04→21:16)
[2018-06-26] MEDS ORDERED: GUAIFENESIN/CODEINE 200-20MG/10ML UDC PO PRN (19:30)
[2018-06-26 20:00] VITALS: BP 126/77
[2018-06-26] MEDS ORDERED: ATORVASTATIN CALCIUM 10MG TABLET PO SCH (21:00)
[2018-06-26] MEDS ORDERED: IPRATROPIUM/ALBUTEROL 0.5-3(2.5)MG/3ML NEB HHN NR (21:15)
[2018-06-27] VITALS: BP 131/59
[2018-06-27] MEDS: IPRATROPIUM/ALBUTEROL 0.5-3(2.5)MG/3ML NEB HHN SCH ×5 (00:03→15:48)
[2018-06-27] MEDS: METHYLPREDNISOLONE SOD SUCC 40 MG/ML VIAL IV SCH ×2 (05:39→15:10)
[2018-06-27 06:15] LABS: CHLORIDE 104 mEq/L (98-107)
[2018-06-27 06:16] LABS: BASOPHILS % 0.2 % (0.0-2.0); HEMATOCRIT. 35.9 % (42.0-52.0); HEMOGLOBIN. 11.5 g/dL (14.0-18.0); LYMPHOCYTES % 12.9 % (20.0-50.0); MEAN CORPUSCULAR HEMOGLOBIN 27.4 pg (28.0-32.0); MEAN CORPUSCULAR VOLUME 85.6 fL (80.0-94.0); MEAN PLATELET VOLUME 10.3 fl (7.4-10.4); MONOCYTES % 3.5 % (2.0-8.0); NEUTROPHILS % 83.4 % (40.0-76.0); PLATELET 178 x1000/uL (130-400); RED CELL DISTRIBUTION WIDTH 15.2 % (11.6-14.6)
[2018-06-27] MEDS: INSULIN LISPRO 100 UNITS/ML SUBCUT SCH ×3 (06:17→17:16)
[2018-06-27] MEDS: BLOOD SUGAR DIAGNOSTIC STRIP TEST SCH ×3 (06:17→17:08)
[2018-06-27 08:00] VITALS: BP 125/59
[2018-06-27] MEDS: AMLODIPINE 10MG TABLET PO SCH (09:59)
[2018-06-27] MEDS: APIXABAN 5 MG TABLET PO SCH ×2 (10:00→17:15)
[2018-06-27 16:40] VITALS: BP 128/67
== END 2018-06-27 17:30 | disposition home or self-care (01) | DRG 140 ==
LOC: ER 12:19 → 8WST 16:17 → EDBEDREQ 16:19 → ENRESERV 17:31
PROVIDERS: ADMIT Internal Medicine; ATTEND Internal Medicine
DX: J44.1 Chronic obstructive pulmonary disease with (acute) exacerbation (principal); J96.20 Acute and chronic respiratory failure, unspecified whether with hypoxia or hypercapnia; E11.9 Type 2 diabetes mellitus without complications; F17.210 Nicotine dependence, cigarettes, uncomplicated; F41.0 Panic disorder [episodic paroxysmal anxiety]; F41.9 Anxiety disorder, unspecified; I10 Essential (primary) hypertension; Z86.711 Personal history of pulmonary embolism; Z88.1 Allergy status to other antibiotic agents; Z79.899 Other long term (current) drug therapy; Z71.6 Tobacco abuse counseling
CPT/HCPCS: 36415; 71045; 80048; 82962; 83036; 83880; 84484; 85027; 85379; 93005; 93970; 94640; 94644; 96374; 99285; 99406; J1650; J1815; J1956; J2920; J2930; J7050; J7611; J7620

== ENCOUNTER 2019-06-22 17:44 | Inpatient (IN) | payer MEDICAID ==
[~2019-06-22] VITALS: Ht 162.6 cm; Wt 49.9 kg
[~2019-06-22 17:44] MED LIST changes: -MONT10TA24 PO; +MONT10TA26 PO
[2019-06-22] MEDS ORDERED: METHYLPREDNISOLONE SOD SUCC 125 MG/2 ML VIAL IV ONE (20:00)
[2019-06-22] MEDS ORDERED: TRAMADOL 50MG TABLET PO ONE (20:00)
[2019-06-22] MEDS ORDERED: IPRATROPIUM/ALBUTEROL 0.5-3(2.5)MG/3ML NEB HHN ONE (20:00)
[2019-06-22 20:32] LABS: CHLORIDE 102 mEq/L (98-107)
[2019-06-22 20:34] LABS: BASOPHILS % 0.3 % (0.0-2.0); EOSINOPHILS % 0.1 % (0.0-5.0); HEMATOCRIT. 39.8 % (42.0-52.0); HEMOGLOBIN. 13.2 g/dL (14.0-18.0); LYMPHOCYTES % 12.1 % (20.0-50.0); MEAN CORPUSCULAR HEMOGLOBIN 27.9 pg (28.0-32.0); MEAN PLATELET VOLUME 9.7 fl (7.4-10.4); MONOCYTES % 4.9 % (2.0-8.0); NEUTROPHILS % 82.6 % (40.0-76.0); PLATELET 262 x1000/uL (130-400); RED BLOOD CELL COUNT 4.74 mill/uL (4.7-6.1); RED CELL DISTRIBUTION WIDTH 16.5 % (11.6-14.6)
[2019-06-22 23:45] VITALS: BP 126/56
[2019-06-23] MEDS ORDERED: ONDANSETRON HCL 4MG/2ML INJ IV PRN (02:00)
[2019-06-23] MEDS ORDERED: CLONIDINE 0.2MG TABLET PO PRN (02:00)
[2019-06-23] MEDS: METHYLPREDNISOLONE SOD SUCC 40 MG/ML VIAL IV SCH ×4 (02:56→21:49)
[2019-06-23 04:00] VITALS: BP 126/66
[2019-06-23 07:00] LABS: BASOPHILS % 0.2 % (0.0-2.0); HEMATOCRIT. 37.7 % (42.0-52.0); HEMOGLOBIN. 12.4 g/dL (14.0-18.0); LYMPHOCYTES % 10.3 % (20.0-50.0); MEAN CORPUSCULAR HEMOGLOBIN 26.8 pg (28.0-32.0); MEAN CORPUSCULAR VOLUME 81.5 fL (80.0-94.0); MEAN PLATELET VOLUME 10.7 fl (7.4-10.4); MONOCYTES % 0.6 % (2.0-8.0); NEUTROPHILS % 88.9 % (40.0-76.0); PLATELET 311 x1000/uL (130-400); RED BLOOD CELL COUNT 4.63 mill/uL (4.7-6.1); RED CELL DISTRIBUTION WIDTH 16.1 % (11.6-14.6)
[2019-06-23 07:53] LABS: CHLORIDE 100 mEq/L (98-107)
[2019-06-23 08:09] VITALS: BP 127/67
[2019-06-23] MEDS: ENOXAPARIN 40MG/0.4ML SYR SUBCUT SCH (09:06)
[2019-06-23] MEDS ORDERED: BUDE6HFA INH (10:06)
[2019-06-23] MEDS ORDERED: METR-167 PO (10:06)
[2019-06-23] MEDS ORDERED: ALPR0.25 PO (10:06)
[2019-06-23] MEDS ORDERED: ONDA4TAB5 MT (10:06)
[2019-06-23] MEDS ORDERED: IPRA4AER INH (10:06)
[2019-06-23] MEDS ORDERED: CITA20TA19 MT (10:06)
[2019-06-23] MEDS ORDERED: PROT40 MT (10:06)
[2019-06-23] MEDS: IPRATROPIUM/ALBUTEROL 0.5-3(2.5)MG/3ML NEB HHN PRN ×2 (10:55→15:19)
[2019-06-23 12:46] VITALS: BP 137/75
[2019-06-23] MEDS: HYDROCODONE/ACETAMINOPHEN 5/325MG TABLET PO PRN (16:16)
[2019-06-23 16:17] VITALS: BP 129/66
[2019-06-23 20:00] VITALS: BP 135/70
[2019-06-23] MEDS: ALPRAZOLAM 0.25 MG TABLET PO PRN (21:49)
[2019-06-24] VITALS: BP 128/66
[2019-06-24 04:00] VITALS: BP 120/68
[2019-06-24] MEDS: METHYLPREDNISOLONE SOD SUCC 40 MG/ML VIAL IV SCH ×3 (05:21→21:54)
[2019-06-24 06:14] LABS: BASOPHILS % 0.4 % (0.0-2.0); HEMATOCRIT. 35.7 % (42.0-52.0); HEMOGLOBIN. 11.8 g/dL (14.0-18.0); LYMPHOCYTES % 12.1 % (20.0-50.0); MEAN CORPUSCULAR HEMOGLOBIN 26.9 pg (28.0-32.0); MEAN CORPUSCULAR VOLUME 81.7 fL (80.0-94.0); MONOCYTES % 5.9 % (2.0-8.0); NEUTROPHILS % 81.6 % (40.0-76.0); PLATELET 293 x1000/uL (130-400); RED BLOOD CELL COUNT 4.37 mill/uL (4.7-6.1); RED CELL DISTRIBUTION WIDTH 16.1 % (11.6-14.6)
[2019-06-24 06:34] LABS: CHLORIDE 101 mEq/L (98-107)
[2019-06-24 08:08] VITALS: BP 134/62
[2019-06-24] MEDS: ENOXAPARIN 40MG/0.4ML SYR SUBCUT SCH (09:24)
[2019-06-24] MEDS: CITALOPRAM HYDROBROMIDE 10MG TABLET PO SCH (09:25)
[2019-06-24] MEDS: AMLODIPINE 10MG TABLET PO SCH (09:25)
[2019-06-24] MEDS: ATORVASTATIN CALCIUM 10MG TABLET PO SCH (09:25)
[2019-06-24] MEDS: IPRATROPIUM/ALBUTEROL 0.5-3(2.5)MG/3ML NEB HHN PRN ×4 (09:48→20:36)
[2019-06-24] MEDS: ALPRAZOLAM 0.25 MG TABLET PO PRN ×2 (10:27→21:54)
[2019-06-24 12:00] VITALS: BP 108/62
[2019-06-24 16:00] VITALS: BP 123/66
[2019-06-24] MEDS: MONTELUKAST SODIUM 10MG TABLET PO SCH (17:34)
[2019-06-24 20:00] VITALS: BP 110/61
[2019-06-25] VITALS: BP 117/64
[2019-06-25] MEDS: IPRATROPIUM/ALBUTEROL 0.5-3(2.5)MG/3ML NEB HHN PRN ×2 (00:04→04:15)
[2019-06-25 04:00] VITALS: BP 131/62
[2019-06-25] MEDS: METHYLPREDNISOLONE SOD SUCC 40 MG/ML VIAL IV SCH ×2 (06:23→14:11)
[2019-06-25 08:00] VITALS: BP 123/69
[2019-06-25] MEDS: ENOXAPARIN 40MG/0.4ML SYR SUBCUT SCH (08:18)
[2019-06-25] MEDS: AMLODIPINE 10MG TABLET PO SCH (08:18)
[2019-06-25] MEDS: CITALOPRAM HYDROBROMIDE 10MG TABLET PO SCH (08:18)
[2019-06-25] MEDS: ATORVASTATIN CALCIUM 10MG TABLET PO SCH (08:20)
[2019-06-25 12:00] VITALS: BP 118/58
[2019-06-25] MEDS: HYDROCODONE/ACETAMINOPHEN 5/325MG TABLET PO PRN (12:07)
[2019-06-25 15:01] VITALS: BP 118/58
[2019-06-25 16:00] VITALS: BP 127/63
[2019-06-25] MEDS: MONTELUKAST SODIUM 10MG TABLET PO SCH (16:31)
== END 2019-06-25 18:10 | disposition home or self-care (01) | DRG 140 ==
LOC: ER 17:44 → 6WST 20:39 → ENRESERV 23:10
PROVIDERS: ADMIT Internal Medicine; ATTEND Internal Medicine
DX: J43.9 Emphysema, unspecified (principal); J96.21 Acute and chronic respiratory failure with hypoxia; R65.10 Systemic inflammatory response syndrome (SIRS) of non-infectious origin without acute organ dysfunction; Z99.81 Dependence on supplemental oxygen; D72.829 Elevated white blood cell count, unspecified; E11.9 Type 2 diabetes mellitus without complications; E78.00 Pure hypercholesterolemia, unspecified; F17.200 Nicotine dependence, unspecified, uncomplicated; I10 Essential (primary) hypertension; T38.0X5A Adverse effect of glucocorticoids and synthetic analogues, initial encounter; E78.5 Hyperlipidemia, unspecified; F32.9 Major depressive disorder, single episode, unspecified; F41.9 Anxiety disorder, unspecified; Z86.711 Personal history of pulmonary embolism; Z88.1 Allergy status to other antibiotic agents; Z79.899 Other long term (current) drug therapy; Y92.89 Other specified places as the place of occurrence of the external cause
CPT/HCPCS: 36415; 71045; 80048; 80053; 83880; 84484; 85025; 93005; 94640; 96374; 99291; J1650; J2920; J2930

== ENCOUNTER 2023-10-19 13:04 | Emergency (ER) | payer MEDICAID ==
[~2023-10-19] VITALS: Ht 162.6 cm; Wt 60.0 kg
[~2023-10-19 13:04] MED LIST changes: +ALPR0.25 PO; +BUDE6HFA INH; +CITA20TA19 MT; +IPRA4AER INH; +METR-167 PO; +MONT-39 PO; -MONT10TA26 PO; +ONDA4TAB5 MT; +PROT40 MT
[2023-10-19 13:06] VITALS: O2SAT 92
[2023-10-19 13:29] LABS: BASOPHILS % 0.1 % (0.0-2.0); DIFFERENTIAL COMMENT 0; EOSINOPHILS % 0.8 % (0.0-5.0); HEMATOCRIT. 38.1 % (42.0-52.0); HEMOGLOBIN. 12.1 g/dL (14.0-18.0); LYMPHOCYTES % 21.3 % (20.0-50.0); MEAN CORPUSCULAR HEMOGLOBIN 24.8 pg (28.0-32.0); MEAN CORPUSCULAR HGB CONC 31.8 g/dL (31.0-37.0); MEAN PLATELET VOLUME 8.1 fl (7.4-10.4); MONOCYTES % 7.3 % (2.0-8.0); NEUTROPHILS % 70.5 % (40.0-76.0); PLATELET 318 x1000/uL (130-400); RED BLOOD CELL COUNT 4.89 mill/uL (4.7-6.1); RED CELL DISTRIBUTION WIDTH 16.6 % (11.6-14.6); WHITE BLOOD COUNT 10.4 x1000/uL (4.5-11.0)
[2023-10-19 13:37] LABS: CHLORIDE 94 mEq/L (98-107); POTASSIUM 3.4 mEq/L (3.5-5.1); SODIUM 132 mEq/L (136-145)
[2023-10-19 13:38] LABS: CALCIUM 9.4 mg/dL (8.7-10.4); CARBON DIOXIDE 33 mEq/L (21-32)
[2023-10-19 13:43] LABS: CREATININE 0.7 mg/dL (0.6-1.3); GLUCOSE 164 mg/dL (70-105)
[2023-10-19 13:44] LABS: UREA NITROGEN BLOOD 9 mg/dL (9-23)
[2023-10-19 13:45] LABS: ALANINE AMINOTRANSFERASE 15 IU/L (10-49); ALBUMIN 4.7 g/dL (3.2-4.8); ASPARTATE AMINOTRANSFERASE 18 IU/L (<34)
[2023-10-19 13:46] LABS: BILIRUBIN DIRECT 0.2 mg/dL (<=3.0); BILIRUBIN TOTAL 0.5 mg/dL (0.1-1.0); PROTEIN TOTAL 6.8 g/dL (6.0-8.3)
[2023-10-19 13:54] VITALS: TEMP 97.8
[2023-10-19 14:23] VITALS: BP 137/63; PULSE 107; RESP 22
== END 2023-10-19 14:46 | disposition left against medical advice (07) ==
LOC: ER 13:04
DX: R10.30 Lower abdominal pain, unspecified (principal); J44.9 Chronic obstructive pulmonary disease, unspecified; E78.00 Pure hypercholesterolemia, unspecified; I10 Essential (primary) hypertension; F17.210 Nicotine dependence, cigarettes, uncomplicated
CPT/HCPCS: 80076; 80048; 85025; 36415; 93005; 99284; Z7610 ×2

== ENCOUNTER 2024-01-28 00:19 | Emergency (ER) | payer MEDICARE, OTHER ==
[~2024-01-28] VITALS: Ht 160 cm; Wt 24338.1 kg
[2024-01-28 02:08] LABS: BASOPHILS % 0.9 % (0.0-2.0); DIFFERENTIAL COMMENT 0; HEMATOCRIT. 32.1 % (42.0-52.0); HEMOGLOBIN. 10.1 g/dL (14.0-18.0); LYMPHOCYTES % 23.5 % (20.0-50.0); MEAN CORPUSCULAR HEMOGLOBIN 24.3 pg (28.0-32.0); MEAN CORPUSCULAR HGB CONC 31.3 g/dL (31.0-37.0); MEAN CORPUSCULAR VOLUME 77.6 fL (80.0-94.0); MEAN PLATELET VOLUME 8.9 fl (7.4-10.4); MONOCYTES % 8.6 % (2.0-8.0); PLATELET 300 x1000/uL (130-400); RED BLOOD CELL COUNT 4.14 mill/uL (4.7-6.1); RED CELL DISTRIBUTION WIDTH 18.2 % (11.6-14.6); WHITE BLOOD COUNT 10.6 x1000/uL (4.5-11.0)
[2024-01-28 02:22] LABS: CHLORIDE 99 mEq/L (98-107); SODIUM 134 mEq/L (136-145)
[2024-01-28 02:23] LABS: CARBON DIOXIDE 31 mEq/L (21-32)
[2024-01-28 02:24] LABS: CALCIUM 9.1 mg/dL (8.7-10.4)
[2024-01-28 02:28] LABS: CREATININE 0.8 mg/dL (0.6-1.3); GLUCOSE 105 mg/dL (70-105); PARTIAL THROMBOPLASTIN TIME 25.8 sec (23.4-31.0); PROTHROMBIN TIME 11.2 sec (9.6-11.0)
[2024-01-28 02:29] LABS: UREA NITROGEN BLOOD 8 mg/dL (9-23)
[2024-01-28 02:30] LABS: TROPONIN I HIGH SENSITIVITY 4 ng/L (3.0-53)
[2024-01-28] MEDS: MORPHINE SULFATE 4 MG/ML INJ (FOR IV/IM USE) IV ONE (02:33)
[2024-01-28 03:07] LABS: ETHANOL BLOOD < 10 mg/dL (<10)
[2024-01-28] MEDS: ALBUTEROL (0.5%) 2.5MG/0.5ML NEB HHN ONE (03:15)
[2024-01-28] MEDS: IPRATROPIUM BROMIDE (0.02%) 0.5MG/2.5ML NEB HHN ONE (03:15)
[2024-01-28] MEDS: ACETAMINOPHEN 1000MG/100ML 100 ML IV ONE (04:25)
[2024-01-28] MEDS: METHYLPREDNISOLONE SOD SUCC 125MG/2ML (ACT-O-VIAL) IV ONE (04:25)
[2024-01-28] MEDS ORDERED: ALBUTEROL (0.5%) 2.5MG/0.5ML NEB HHN ONE (05:54)
[2024-01-28 05:58] VITALS: PULSE 90; RESP 20; O2SAT 99
[2024-01-28] MEDS: ALBUTEROL (0.5%) 2.5MG/0.5ML NEB HHN NR (06:24)
[2024-01-28] MEDS: IPRATROPIUM BROMIDE (0.02%) 0.5MG/2.5ML NEB HHN NR (06:24)
[2024-01-28 16:08] VITALS: BP 149/84; PULSE 100; RESP 27; TEMP 36.72516; O2SAT 99
== END 2024-01-28 18:31 | disposition left against medical advice (07) ==
LOC: ER 00:23 → UNDOADMIN 03:55 → 5WST 03:55 → UNDODISIN 17:05
DX: J44.1 Chronic obstructive pulmonary disease with (acute) exacerbation (principal); I10 Essential (primary) hypertension; E78.00 Pure hypercholesterolemia, unspecified; Z88.0 Allergy status to penicillin; Z79.899 Other long term (current) drug therapy; Z98.890 Other specified postprocedural states
CPT/HCPCS: 80048; 80320; 83880; 83605; 85025; 85610; 85730; 84484; 36415; 71045; 94640; 93005; 96365; 96375; 99285; J2919; J2270; Z7610 ×3; G0480; J0131